=== PATIENT | male | born 1970 | race Caucasian/White ===

== ENCOUNTER 2025-03-21 14:28 | Outpatient (CLI) | payer OTHER | END 2025-03-21 14:29 | disposition home or self-care (01) | LOC: SCSMRI 14:28 | PROVIDERS: ATTEND Family Medicine | DX: S46.202A Unspecified injury of muscle, fascia and tendon of other parts of biceps, left arm, initial encounter (principal); S46.212A Strain of muscle, fascia and tendon of other parts of biceps, left arm, initial encounter ==